=== PATIENT | male | born 1965 | race Caucasian/White ===

== ENCOUNTER 2018-08-09 06:24 | Inpatient (IN) | payer BC ==
[2018-07-27 15:05] LABS: BASOPHILS # (AUTO) 0.1 X10'3 (0-0.2); EOSINOPHILS # (AUTO) 0.3 X10'3 (0-0.9); EOSINOPHILS % (AUTO) 4.9 % (0-6); LYMPHOCYTES # (AUTO) 1.7 X10'3 (1.1-4.8); LYMPHOCYTES % (AUTO) 24.3 % (21-51); MEAN CORPUSCULAR HEMOGLOBIN 31.1 PG (27.0-31.0); MEAN CORPUSCULAR HGB CONC 33.5 g/dL (33.0-36.5); MEAN CORPUSCULAR VOLUME 92.7 FL (78-98); MEAN PLATELET VOLUME 10.4 FL (7.4-10.4); MONOCYTES # (AUTO) 0.6 X10'3 (0-0.9); MONOCYTES % (AUTO) 8.4 % (2-12); NEUTROPHILS # (AUTO) 4.2 X10'3 (1.8-7.7); NEUTROPHILS % (AUTO) 61.4 % (42-75); PRE OP HEMATOCRIT 44.1 % (42.0-52.0); PRE OP HEMOGLOBIN 14.8 g/dL (14.0-17.9); PRE OP PLATELET COUNT 148 X10'3 (140-440); RED BLOOD COUNT 4.76 X10'6 (4.70-6.10); RED CELL DISTRIBUTION WIDTH 13.4 % (11.5-14.5)
[2018-07-27 15:09] LABS: CLARITY,URINE CLEAR (Clear); COLOR,URINE YELLOW (Yellow); GLUCOSE, URINE NEGATIVE (Neg); KETONES,URINE NEGATIVE (Neg); LEUKOCYTE ESTERASE ,URINE NEGATIVE (Neg); NITRITES, URINE NEGATIVE (Neg); OCCULT BLOOD,URINE NEGATIVE (Neg); PH,URINE 5.5 (4.8-8.0); PROTEIN,URINE NEGATIVE (Neg); UROBILINOGEN,URINE 0.2 E.U/dL (0.2-1.0)
[2018-07-27 15:13] LABS: UA COLLECTION TYPE VOIDED
[2018-07-27 15:20] LABS: PRE OP PROTIME 10.3 SECONDS (9.0-12.0)
[2018-07-27 15:28] LABS: ALBUMIN 3.9 G/DL (3.4-5.0); ALKALINE PHOSPHATASE 64 IU/L (46-116); BLOOD UREA NITROGEN 25 MG/DL (7-18); BUN/CREATININE RATIO 28.7 (5.4-32.0); CALCIUM 9.3 MG/DL (8.5-10.1); CHLORIDE 104 MMOL/L (99-107); CREATININE 0.87 MG/DL (0.60-1.10); PRE OP ALT 52 U/L (30-65); PRE OP ANION GAP 8 (8-16); PRE OP AST 27 U/L (10-37); PRE OP BILIRUB, TOTAL 0.3 MG/DL (0.0-1.0); PRE OP GLUCOSE 90 MG/DL (70-104); PRE OP SODIUM 140 MMOL/L (135-145); TOTAL CARBON DIOXIDE 27.6 MMOL/L (24-32); TOTAL PROTEIN 7.7 G/DL (6.4-8.2); eGFR > 90 ML/MIN
[~2018-08-09] VITALS: Ht 188 cm; Wt 145.1 kg
[2018-08-09] VITALS (17 sets, daily range): BP systolic 89–143; BP diastolic 34–85
[~2018-08-09 06:24] MED LIST: ASPI81TA52 PO; CELE200C PO; DIPH25CA6 PO; ESCI20TA PO; GLUC-133 PO; OMEG-15 PO
[2018-08-09] MEDS ORDERED: HYDROcodone/acetaminophen 10/325mg tab PO PRN (06:50)
[2018-08-09] MEDS ORDERED: ondansetron/PF 4mg/2ml inj IV PRN ×3 (06:50→10:55)
[2018-08-09] MEDS ORDERED: acetaminophen 325mg tablet PO PRN (06:50)
[2018-08-09] MEDS ORDERED: diphenhydrAMINE 25mg capsule PO PRN ×2 (06:50)
[2018-08-09] MEDS ORDERED: bisacodyl 10mg suppository rectal RC PRN (06:50)
[2018-08-09] MEDS ORDERED: magnesium hydroxide 30ml (MOM) UD suspension PO PRN (06:50)
[2018-08-09] MEDS ORDERED: HYDROmorphone 1 mg/ml syringe IV PRN (06:50)
[2018-08-09] MEDS ORDERED: HYDROmorphone inj. 0.5 MG/0.5 ML DISP.SYRIN IV PRN (06:50)
[2018-08-09] MEDS ORDERED: oxyCODONE SR 10mg (sust. release) tab -2 tabs (20mg) PO ONE (08:00)
[2018-08-09] MEDS: multivitamins, therapeutics tablet PO SCH (08:00)
[2018-08-09] MEDS ORDERED: vancomycin inj 1,500 MG in normal saline 300ml IV soln IV ONE (08:00)
[2018-08-09] MEDS: ascorbic acid 500mg tablet PO SCH ×2 (08:00→20:18)
[2018-08-09] MEDS ORDERED: ceFAZolin 2gm in dextrose, iso 100 ML IV ONE (08:00)
[2018-08-09] MEDS: gabapentin 300mg capsule PO SCH ×3 (08:00→20:17)
[2018-08-09] MEDS ORDERED: gabapentin 300mg capsule PO ONE (08:00)
[2018-08-09] MEDS ORDERED: acetaminophen 325mg tablet PO ONE (08:00)
[2018-08-09] MEDS: diphenhydrAMINE 25mg capsule PO SCH (08:00)
[2018-08-09] MEDS ORDERED: ringers solution, lacted 1,000 ML IV SCH ×2 (08:00→10:51)
[2018-08-09] MEDS ORDERED: famotidine 20mg tablet PO ONE (08:00)
[2018-08-09] MEDS ORDERED: tranexamic acid inj. 1,000 MG in normal saline 100 ML IV ONE (08:00)
[2018-08-09] MEDS ORDERED: metoclopramide 5 mg/ml inj IV ONE (08:00)
[2018-08-09] MEDS ORDERED: celeCOXIB 100mg capsule PO ONE (08:00)
[2018-08-09] MEDS: aspirin 325mg tablet PO SCH (08:30)
[2018-08-09] MEDS ORDERED: vancomycin 1,000mg inj ONE (09:20)
[2018-08-09] MEDS ORDERED: ROPIVAcaine 0.5% (5mg/ml) 30ml vial ONE (09:27)
[2018-08-09] MEDS ORDERED: epiNEPHrine 1 mg/ml inj ONE (09:27)
[2018-08-09] MEDS ORDERED: ketorolac trometh. 30mg/ml inj. ONE (09:27)
[2018-08-09] MEDS ORDERED: tetracaine 1% (10mg/ml) pres. free inj. ONE (10:05)
[2018-08-09] MEDS ORDERED: dexmedetomidine 200mcg/2ml inj. IV ONE (10:05)
[2018-08-09] MEDS ORDERED: MIDAZolam 1mg/ml 10ml vial ONE (10:06)
[2018-08-09] MEDS ORDERED: morphine /PF 1mg/ml 10ml inj. ONE (10:06)
[2018-08-09] MEDS ORDERED: fentaNYL/PF 50MCG/1 ML 2ML syringe ONE (10:07)
[2018-08-09] MEDS ORDERED: ePHEDrine 50MG/ML INJ. ONE (10:15)
[2018-08-09] MEDS ORDERED: morphine 4 MG/ML inj SYRINge IV PRN ×2 (10:55)
[2018-08-09] MEDS ORDERED: diphenhydrAMINE 50 mg/ml inj IV PRN (10:55)
[2018-08-09] MEDS ORDERED: hydrALAZINE 20mg/ml inj. IV PRN (10:55)
[2018-08-09] MEDS ORDERED: fentaNYL/PF 50MCG/1 ML 2ML syringe IV PRN ×2 (10:55)
[2018-08-09] MEDS ORDERED: labetalol 20mg/4ml (5mg/ml) syringe IV PRN (10:55)
--- NOTE | 2018-08-09 12:04 | NUR ---
Received from OR via , accompanied by Anesthesiologist DR HDEZ and report given by Anesthesiolgist. AWAKENS TO VOICE. VITALS STABLE. DRESSING DI. LA PAIN. SENSATION AT MID ABD. [place] WITH CLEAR URINE.
--- NOTE | 2018-08-09 13:34 | NUR ---
Report called to receiving nurse. Transferred via BED Belongings . Special Issues communicated to receiving nurse. AWAKE AND ORIENTED. VITALS STABLE. DRESSING DI. AL PAIN. TO ORTHO RM [id number] AT THIS TIME.
[2018-08-09] MEDS ORDERED: VANCOMYCIN 1,500MG inj. 1,500 MG in normal saline 250ml IV soln 280 ML IV SCH ×2 (15:00→20:00)
[2018-08-09] MEDS ORDERED: tranexamic acid inj. 1,000 MG in normal saline 100ml IV soln 100 ML IV ONE (16:30)
[2018-08-09] MEDS: cefazolin/dext.iso 2gm/100ml 100 ML IV SCH ×2 (17:42→23:49)
--- NOTE | 2018-08-09 18:30 | NUR ---
Patient in room ORTHO 4011. I have received report from MARLY HERRERA and had the opportunity to ask questions and assume patient care.
[2018-08-09] MEDS: potassium cl 20mEq in 1/2 NS 1,000 ML IV SCH (19:09)
[2018-08-09] MEDS: sennosides 8.6mg tablet PO SCH (20:18)
[2018-08-09] MEDS: celeCOXIB 100mg capsule PO SCH (20:18)
[2018-08-09] MEDS ORDERED: vancomycin/NS 1 GM ADD-VANTAGE 250 ML IV ONE (22:00)
--- NOTE | 2018-08-10 00:12 | NUR ---
REPORT GIVEN TO MARLY LOPEZ. WILL TAKE PT'S BELONGINGS TO HER ROOM IN CICU.
[2018-08-10 02:00] VITALS: BP 123/79
[2018-08-10] MEDS: HYDROcodone/acetaminophen 10/325mg tab PO PRN ×3 (02:55→19:51)
[2018-08-10] MEDS: potassium cl 20mEq in 1/2 NS 1,000 ML IV SCH ×5 (05:06→22:04)
[2018-08-10 06:00] VITALS: BP 115/65
--- NOTE | 2018-08-10 06:36 | NUR ---
Problems reprioritized. Patient report given, questions answered & plan of care reviewed with rad Suresh.
[2018-08-10 07:00] LABS: BASOPHILS % (AUTO) 0.4 % (0-1); EOSINOPHILS # (AUTO) 0.1 X10'3 (0-0.9); EOSINOPHILS % (AUTO) 1.8 % (0-6); HEMATOCRIT 37.6 % (42.0-52.0); HEMOGLOBIN 12.8 g/dl (14.0-17.9); LYMPHOCYTES # (AUTO) 1.1 X10'3 (1.1-4.8); LYMPHOCYTES % (AUTO) 15.3 % (21-51); MEAN CORPUSCULAR HEMOGLOBIN 31.8 PG (27.0-31.0); MEAN CORPUSCULAR HGB CONC 34.1 g/dL (33.0-36.5); MEAN CORPUSCULAR VOLUME 93.1 FL (78-98); MEAN PLATELET VOLUME 10.5 FL (7.4-10.4); MONOCYTES # (AUTO) 0.8 X10'3 (0-0.9); MONOCYTES % (AUTO) 11.5 % (2-12); NEUTROPHILS # (AUTO) 4.9 X10'3 (1.8-7.7); PLATELET COUNT 117 X10'3 (140-440); RED BLOOD COUNT 4.04 X10'6 (4.70-6.10); RED CELL DISTRIBUTION WIDTH 13.4 % (11.5-14.5); WHITE BLOOD COUNT 6.9 X10'3 (4.5-11.0)
[2018-08-10 07:19] LABS: ANION GAP 7 (8-16); CHLORIDE 100 MMOL/L (99-107); POTASSIUM 4.1 MMOL/L (3.5-5.1); SODIUM 134 MMOL/L (135-145); TOTAL CARBON DIOXIDE 27.4 MMOL/L (24-32)
[2018-08-10] MEDS: citalopram 20mg tablet PO SCH (08:00)
[2018-08-10] MEDS: multivitamins, therapeutics tablet PO SCH (08:22)
[2018-08-10] MEDS: celeCOXIB 100mg capsule PO SCH ×2 (08:22→19:48)
[2018-08-10] MEDS: ascorbic acid 500mg tablet PO SCH ×2 (08:22→19:47)
[2018-08-10] MEDS: diphenhydrAMINE 25mg capsule PO SCH (08:23)
[2018-08-10] MEDS: gabapentin 300mg capsule PO SCH ×3 (08:23→19:47)
[2018-08-10] MEDS: aspirin 325mg tablet PO SCH (08:23)
[2018-08-10] MEDS: OMEGA-3/DHA/EPA/FISH OIL 1 EACH CAPSULE.DR PO SCH (08:28)
[2018-08-10 10:00] VITALS: BP 115/65
--- NOTE | 2018-08-10 12:10 | NUR ---
Joint replacement consult: Pt seen by LOY for written/verbal high protein ed. LOY reviewed high protein needs for wound healing, immune strength, high protein foods, and protein supplementation options. LOY contact information provided in case of further questions. Declines additional proteins at this time. Addendum: 08/10/18 at [address] Amended: Links added.
[2018-08-10 13:45] VITALS: BP 137/75
[2018-08-10] MEDS ORDERED: VANCOMYCIN LEVEL IV ONE (14:30)
[2018-08-10 18:00] VITALS: BP 148/67
--- NOTE | 2018-08-10 19:21 | NUR ---
Patient in room ORTHO 4011. I have received report from rad Suresh and had the opportunity to ask questions and assume patient care.
[2018-08-10] MEDS: sennosides 8.6mg tablet PO SCH (19:48)
[2018-08-10 22:00] VITALS: BP 105/64
[2018-08-11] MEDS: HYDROcodone/acetaminophen 10/325mg tab PO PRN (03:07)
[2018-08-11 05:43] LABS: BASOPHILS % (AUTO) 0.3 % (0-1); EOSINOPHILS # (AUTO) 0.2 X10'3 (0-0.9); HEMATOCRIT 36.8 % (42.0-52.0); HEMOGLOBIN 12.6 g/dl (14.0-17.9); LYMPHOCYTES % (AUTO) 13.8 % (21-51); MEAN CORPUSCULAR HEMOGLOBIN 31.9 PG (27.0-31.0); MEAN CORPUSCULAR HGB CONC 34.3 g/dL (33.0-36.5); MEAN CORPUSCULAR VOLUME 92.9 FL (78-98); MEAN PLATELET VOLUME 10.4 FL (7.4-10.4); MONOCYTES # (AUTO) 1.1 X10'3 (0-0.9); NEUTROPHILS # (AUTO) 5.3 X10'3 (1.8-7.7); NEUTROPHILS % (AUTO) 69.9 % (42-75); PLATELET COUNT 106 X10'3 (140-440); RED BLOOD COUNT 3.96 X10'6 (4.70-6.10); RED CELL DISTRIBUTION WIDTH 13.3 % (11.5-14.5); WHITE BLOOD COUNT 7.5 X10'3 (4.5-11.0)
[2018-08-11 06:00] VITALS: BP 122/65
--- NOTE | 2018-08-11 06:14 | NUR ---
Problems reprioritized. Patient report given, questions answered & plan of care reviewed with MARLY HERRERA.
[2018-08-11] MEDS ORDERED: ASPI-1 PO (07:57)
[2018-08-11 09:30] VITALS: BP 139/75
[2018-08-11] MEDS: diphenhydrAMINE 25mg capsule PO SCH (09:30)
[2018-08-11] MEDS: ascorbic acid 500mg tablet PO SCH (09:31)
[2018-08-11] MEDS: OMEGA-3/DHA/EPA/FISH OIL 1 EACH CAPSULE.DR PO SCH (09:31)
[2018-08-11] MEDS: aspirin 325mg tablet PO SCH (09:31)
[2018-08-11] MEDS: celeCOXIB 100mg capsule PO SCH (09:31)
[2018-08-11] MEDS: multivitamins, therapeutics tablet PO SCH (09:31)
[2018-08-11] MEDS: citalopram 20mg tablet PO SCH (09:31)
[2018-08-11] MEDS: gabapentin 300mg capsule PO SCH (09:31)
== END 2018-08-11 12:50 | disposition home or self-care (01) | DRG 470 ==
LOC: PAS IN 06:24 → EDSTATUS 09:15 → ORTHO 4S 13:40
PROVIDERS: ADMIT Orthopaedic Surgery; ATTEND Orthopaedic Surgery
PROC: 0SR906Z Replacement of Right Hip Joint with Oxidized Zirconium on Polyethylene Synthetic Substitute, Open Approach (ICD-10-PCS; principal; 2018-08-09 10:01)
PROC: 5A09357 Assistance with Respiratory Ventilation, Less than 24 Consecutive Hours, Continuous Positive Airway Pressure (ICD-10-PCS; 2018-08-10)
DX: M16.11 Unilateral primary osteoarthritis, right hip (principal); D62 Acute posthemorrhagic anemia; Z68.41 Body mass index [BMI] 40.0-44.9, adult; G47.30 Sleep apnea, unspecified; J45.909 Unspecified asthma, uncomplicated; F32.9 Major depressive disorder, single episode, unspecified; F41.9 Anxiety disorder, unspecified; E66.01 Morbid (severe) obesity due to excess calories; Z88.5 Allergy status to narcotic agent; Z72.89 Other problems related to lifestyle; Z79.899 Other long term (current) drug therapy
CPT/HCPCS: 36415; 71046; 72170; 80051; 80053; 81003; 82948; 85025; 85610; 85730; 86885; 86900; 86901; 86920; 87070; 97110; 97116; 97161; 97530; A4615; A7000; C1758; C1776; G0378; J0171; J0690; J1885; J2250; J2274; J2765; J2795; J3010; J3370; J7030; J7120; Q0163